=== PATIENT | female | born 1985 | race Caucasian/White ===

== ENCOUNTER 2024-03-12 13:29 | Inpatient (IN) | payer OTHER ==
[~2024-03-12] VITALS: Ht 166.4 cm; Wt 78.9 kg
[2024-03-12 13:31] VITALS: BP_SYST 135; PULSE 83; RESP 16; TEMP 98.2; O2SAT 96
[2024-03-12 14:32] LABS: BASOPHILS % (AUTO) 0.5 % (0.0-2.0); EOSINOPHILS # (AUTO) 0.1 K/uL (0.0-0.4); EOSINOPHILS % (AUTO) 0.8 % (0.0-4.0); HEMOGLOBIN 14.4 g/dL (12.0-16.0); LYMPHOCYTES # (AUTO) 2.9 K/uL (1.0-5.5); LYMPHOCYTES % (AUTO) 31.9 % (20.5-51.5); MEAN CORPUSCULAR HEMOGLOBIN 32 pg (27-31); MEAN CORPUSCULAR HGB CONC 34 % (32-36); MEAN CORPUSCULAR VOLUME 93 fL (79.0-98.0); MONOCYTES # (AUTO) 0.4 K/uL (0.0-1.0); MONOCYTES % (AUTO) 4.5 % (1.7-9.3); NEUTROPHILS # (AUTO) 5.6 K/uL (1.8-7.7); NEUTROPHILS % (AUTO) 62.3 % (40.0-70.0); PLATELET COUNT (AUTO) 287 K/uL (130-430); RED CELL DISTRIBUTION WIDTH 12.2 % (9.0-15.0); WHITE BLOOD COUNT (AUTO) 8.9 K/uL (4.8-10.8)
[2024-03-12 14:54] LABS: ANION GAP 7 (5-15); CARBON DIOXIDE 29 mmol/L (23-29); CHLORIDE 109 mmol/L (98-107); CREATININE 0.86 mg/dL (0.55-1.30); GFR AFRICAN AMERICAN 94 mL/min (>90); GLUCOSE 80 mg/dL (74-106); POTASSIUM 4.2 mmol/L (3.5-5.1); SODIUM SERUM 145 mmol/L (136-145); UREA NITROGEN, BLOOD 8 mg/dL (8-21)
[2024-03-12 14:55] LABS: GFR NON AFRICAN-AMERICAN 78 mL/min (>90)
[2024-03-12] MEDS: MORPHINE 4 MG INJ. 4 MG/ML VIAL IVP ONE (15:45)
[2024-03-12] MEDS: ONDANSETRON HCL 4 MG/2 ML VIAL IVP ONE ×3 (16:03→19:26)
[2024-03-12] MEDS: KETAMINE HCL 500 MG/10 ML VIAL IVP ONE (17:09)
[2024-03-12] MEDS: LIDOCAINE 2%, 20 ML MDV INJ ONE (17:09)
[2024-03-12] MEDS ORDERED: MUPIROCIN 2% TOPICAL OINTMENT 22 GM NS PRN (18:15)
[2024-03-12] MEDS ORDERED: DOCUSATE SODIUM 100 MG CAPSULE PO PRN (18:15)
[2024-03-12] MEDS ORDERED: ONDANSETRON HCL 4 MG/2 ML VIAL IVP PRN (18:15)
[2024-03-12] MEDS ORDERED: POTASSIUM CHLORIDE 20 MEQ TABLET.ER PO PRN (18:15)
[2024-03-12] MEDS ORDERED: ALBUTEROL SULFATE 0.083% 2.5 MG/3 ML VIAL.NEB INH PRN (18:15)
[2024-03-12] MEDS ORDERED: MAGNESIUM SULFATE 50 ML IV PRN (18:15)
[2024-03-12] MEDS: KETOROLAC TROMETHAMINE 30 MG VIAL IVP ONE (18:45)
[2024-03-12] MEDS: HYDROmorphone 1 MG/ML INJ. CARTRIDGE IVP ONE (18:46)
[2024-03-12] MEDS: DIPHENHYDRAMINE INJ 50 MG/ML VIAL IVP ONE (20:10)
[2024-03-12] MEDS: METOCLOPRAMIDE HCL 10 MG/2 ML VIAL IVP ONE (20:11)
[2024-03-13] MEDS: MORPHINE 2 MG/ML INJ. SYRINGE IVP PRN ×2 (04:35→12:09)
[2024-03-13 04:54] VITALS: BP_SYST 138; PULSE 83; O2SAT 96
[2024-03-13 07:34] LABS: CALCIUM 8.3 mg/dL (8.4-11.0); CREATININE 0.79 mg/dL (0.55-1.30); POTASSIUM 3.8 mmol/L (3.5-5.1)
[2024-03-13 07:36] LABS: BASOPHILS % (AUTO) 0.4 % (0.0-2.0); EOSINOPHILS % (AUTO) 0.5 % (0.0-4.0); HEMATOCRIT 38.5 % (36-48); HEMOGLOBIN 13.2 g/dL (12.0-16.0); LYMPHOCYTES % (AUTO) 33.8 % (20.5-51.5); MEAN CORPUSCULAR HEMOGLOBIN 32 pg (27-31); MEAN CORPUSCULAR HGB CONC 34 % (32-36); MEAN CORPUSCULAR VOLUME 94 fL (79.0-98.0); MONOCYTES # (AUTO) 0.6 K/uL (0.0-1.0); MONOCYTES % (AUTO) 6.6 % (1.7-9.3); NEUTROPHILS # (AUTO) 5.1 K/uL (1.8-7.7); NEUTROPHILS % (AUTO) 58.7 % (40.0-70.0); PLATELET COUNT (AUTO) 261 K/uL (130-430); RED BLOOD CELL COUNT(AUTO) 4.11 MIL/uL (4.2-6.2); RED CELL DISTRIBUTION WIDTH 12.2 % (9.0-15.0); WHITE BLOOD COUNT (AUTO) 8.7 K/uL (4.8-10.8)
[2024-03-13 12:00] VITALS: BP_SYST 116; PULSE 74; RESP 20; TEMP 98.1; O2SAT 99
[2024-03-13 12:28] VITALS: BP_SYST 116; PULSE 74; RESP 20; TEMP 98.1; O2SAT 97
[2024-03-13 16:00] VITALS: BP_SYST 112; PULSE 70; RESP 18; TEMP 97.8; O2SAT 99
[2024-03-13 19:15] LABS: HCG,QUAL RESULT NEGATIVE (NEGATIVE)
[2024-03-13 19:32] VITALS: BP_SYST 108; PULSE 73; RESP 20; TEMP 97.8; O2SAT 98; O2SAT 99
[2024-03-14 00:34] VITALS: BP_SYST 104; PULSE 72; RESP 16; TEMP 97.7; O2SAT 99
[2024-03-14 07:07] LABS: BASOPHILS % (AUTO) 0.4 % (0.0-2.0); EOSINOPHILS # (AUTO) 0.1 K/uL (0.0-0.4); EOSINOPHILS % (AUTO) 1.2 % (0.0-4.0); HEMATOCRIT 37.2 % (36-48); HEMOGLOBIN 12.7 g/dL (12.0-16.0); LYMPHOCYTES # (AUTO) 3.2 K/uL (1.0-5.5); LYMPHOCYTES % (AUTO) 39.3 % (20.5-51.5); MEAN CORPUSCULAR HEMOGLOBIN 32 pg (27-31); MEAN CORPUSCULAR HGB CONC 34 % (32-36); MEAN CORPUSCULAR VOLUME 94 fL (79.0-98.0); MONOCYTES # (AUTO) 0.6 K/uL (0.0-1.0); MONOCYTES % (AUTO) 7.3 % (1.7-9.3); NEUTROPHILS # (AUTO) 4.2 K/uL (1.8-7.7); NEUTROPHILS % (AUTO) 51.8 % (40.0-70.0); PLATELET COUNT (AUTO) 240 K/uL (130-430); RED BLOOD CELL COUNT(AUTO) 3.97 MIL/uL (4.2-6.2); RED CELL DISTRIBUTION WIDTH 12.1 % (9.0-15.0)
[2024-03-14 07:18] LABS: CALCIUM 8.3 mg/dL (8.4-11.0); CREATININE 0.73 mg/dL (0.55-1.30); POTASSIUM 3.9 mmol/L (3.5-5.1)
[2024-03-14 08:05] VITALS: BP_SYST 103; PULSE 67; RESP 18; TEMP 98.6; O2SAT 97
[2024-03-14 09:50] VITALS: O2SAT 97
[2024-03-14] MEDS: ACETAMINOPHEN 325 MG TABLET PO PRN (12:18)
[2024-03-14 12:55] VITALS: BP_SYST 105; PULSE 74; RESP 17; TEMP 98; O2SAT 98
[2024-03-14 16:02] VITALS: BP_SYST 104; PULSE 69; RESP 18; TEMP 98.5; O2SAT 97
[2024-03-14 20:00] VITALS: BP_SYST 115; PULSE 72; RESP 18; TEMP 98.3; O2SAT 95
[2024-03-15] VITALS (7 sets, daily range): BP systolic 99–110; PULSE 67–85; RESP 17–19; TEMP 97.2–98.8; O2SAT 94–97
[2024-03-15 07:41] LABS: BASOPHILS # (AUTO) 0.1 K/uL (0.0-0.2); BASOPHILS % (AUTO) 0.8 % (0.0-2.0); EOSINOPHILS # (AUTO) 0.2 K/uL (0.0-0.4); EOSINOPHILS % (AUTO) 2.4 % (0.0-4.0); HEMATOCRIT 38.2 % (36-48); HEMOGLOBIN 13.1 g/dL (12.0-16.0); LYMPHOCYTES # (AUTO) 3.1 K/uL (1.0-5.5); LYMPHOCYTES % (AUTO) 40.5 % (20.5-51.5); MEAN CORPUSCULAR HEMOGLOBIN 32 pg (27-31); MEAN CORPUSCULAR HGB CONC 34 % (32-36); MEAN CORPUSCULAR VOLUME 94 fL (79.0-98.0); MONOCYTES # (AUTO) 0.5 K/uL (0.0-1.0); MONOCYTES % (AUTO) 6.6 % (1.7-9.3); NEUTROPHILS # (AUTO) 3.8 K/uL (1.8-7.7); NEUTROPHILS % (AUTO) 49.7 % (40.0-70.0); PLATELET COUNT (AUTO) 267 K/uL (130-430); RED BLOOD CELL COUNT(AUTO) 4.08 MIL/uL (4.2-6.2); RED CELL DISTRIBUTION WIDTH 12.1 % (9.0-15.0); WHITE BLOOD COUNT (AUTO) 7.7 K/uL (4.8-10.8)
[2024-03-15 08:16] LABS: CALCIUM 8.4 mg/dL (8.4-11.0); CREATININE 0.74 mg/dL (0.55-1.30); POTASSIUM 3.8 mmol/L (3.5-5.1)
[2024-03-16] VITALS: BP_SYST 112; PULSE 85; RESP 20; TEMP 98.1
[2024-03-16 07:15] LABS: BASOPHILS # (AUTO) 0.1 K/uL (0.0-0.2); BASOPHILS % (AUTO) 0.6 % (0.0-2.0); EOSINOPHILS # (AUTO) 0.3 K/uL (0.0-0.4); EOSINOPHILS % (AUTO) 3.3 % (0.0-4.0); HEMATOCRIT 41.6 % (36-48); HEMOGLOBIN 14.1 g/dL (12.0-16.0); LYMPHOCYTES % (AUTO) 38.1 % (20.5-51.5); MEAN CORPUSCULAR HEMOGLOBIN 32 pg (27-31); MEAN CORPUSCULAR HGB CONC 34 % (32-36); MEAN CORPUSCULAR VOLUME 93 fL (79.0-98.0); MONOCYTES # (AUTO) 0.5 K/uL (0.0-1.0); MONOCYTES % (AUTO) 6.2 % (1.7-9.3); NEUTROPHILS # (AUTO) 4.1 K/uL (1.8-7.7); NEUTROPHILS % (AUTO) 51.8 % (40.0-70.0); PLATELET COUNT (AUTO) 283 K/uL (130-430); RED BLOOD CELL COUNT(AUTO) 4.45 MIL/uL (4.2-6.2); RED CELL DISTRIBUTION WIDTH 12.1 % (9.0-15.0); WHITE BLOOD COUNT (AUTO) 7.9 K/uL (4.8-10.8)
[2024-03-16 07:23] LABS: CALCIUM 8.9 mg/dL (8.4-11.0); CREATININE 0.8 mg/dL (0.55-1.30); POTASSIUM 4.4 mmol/L (3.5-5.1)
[2024-03-16 08:09] VITALS: BP_SYST 117; PULSE 71; RESP 20; TEMP 98.1; O2SAT 97
[2024-03-16 08:10] VITALS: PULSE 75; O2SAT 97
[2024-03-16 11:09] VITALS: BP_SYST 104; PULSE 68; RESP 20; TEMP 98.6; O2SAT 96
== END 2024-03-16 12:10 | disposition home or self-care (01) | DRG 189 ==
LOC: SED 13:29 → STU 18:10 → SMU 03-15 18:30
PROVIDERS: ADMIT Family Medicine; ATTEND Family Medicine
PROC: 0W9B30Z Drainage of Left Pleural Cavity with Drainage Device, Percutaneous Approach (ICD-10-PCS; principal; 2024-03-12)
DX: J96.00 Acute respiratory failure, unspecified whether with hypoxia or hypercapnia (principal); J93.83 Other pneumothorax; Z80.1 Family history of malignant neoplasm of trachea, bronchus and lung; Z82.5 Family history of asthma and other chronic lower respiratory diseases
CPT/HCPCS: 36415; 71045; 80048; 83735; 83880; 84484; 84703; 85025; 94070; 99291; 99292; G0378; J1171; J1200; J1885; J2003; J2270; J2405; J2765